=== PATIENT | male | born 1995 | race Caucasian/White ===

== ENCOUNTER 2021-07-08 07:57 | Emergency (ER) | payer OTHER, SELFPAY ==
[2021-07-08] VITALS (10 sets, daily range): BP systolic 135–165; BP diastolic 100–106; PULSE 72–105; RESP 11–22; TEMP 36.8; O2SAT 84–100; BMI 23.6
--- NOTE | 2021-07-08 07:58 | XRR_ITS ---
PROCEDURE INFORMATION: Exam: XR Left Foot Exam date and time: 07/08/2021 7:58 AM Age: 25 years old Clinical indication: Injury or trauma; Fall; Blunt trauma and laceration; Foot; Left; Foreign body involvement not specified TECHNIQUE: Imaging protocol: XR Left foot. Views: 3 or more views. COMPARISON: No relevant prior studies available. FINDINGS: Bones/joints: No bony abnormalities are seen. Soft tissues: There are numerous tiny foci radiopacities projecting in the soft tissues anterior to the ankle, talus and navicular which may represent foreign bodies and laceration. XR/XR foot LT min 3V* [id number] IMPRESSION: There are numerous tiny radiopacities projecting in the soft tissues are there is anterior to the to the ankle, talus and navicular which may represent foreign bodies and a laceration.
--- NOTE | 2021-07-08 07:58 | XRR_ITS ---
PROCEDURE INFORMATION: Exam: XR Left Knee Exam date and time: 07/08/2021 7:58 AM Age: 25 years old Clinical indication: Injury or trauma; Fall; Blunt trauma and laceration; Left; Patella or knee; With foreign body TECHNIQUE: Imaging protocol: XR Left knee. Views: 3 views. COMPARISON: No relevant prior studies available. FINDINGS: Bones/joints: Normal. Soft tissues: There are punctate radiopacities projecting in the soft tissues superior to the patella on the lateral view which may represent tiny foreign bodies in a laceration.. XR/XR knee LT 3V* [id number] IMPRESSION: 1. No acute bony abnormality. 2. Punctate radiopacities projecting on the soft tissues above the patella on the lateral view which may represent tiny foreign bodies in the laceration.
--- NOTE | 2021-07-08 07:58 | XRR_ITS ---
PROCEDURE INFORMATION: Exam: XR Left Ankle Exam date and time: 07/08/2021 7:58 AM Age: 25 years old Clinical indication: Injury or trauma; Fall; Blunt trauma; Ankle; Left TECHNIQUE: Imaging protocol: XR Left ankle. Views: 3 or more views. COMPARISON: No relevant prior studies available. FINDINGS: Bones/joints: No significant bone or joint abnormalities are seen. Soft tissues: There are numerous tiny radiopacities projecting in the soft tissues anterior to the ankle joint talus and navicular bone which may represent foreign bodies in the laceration. XR/XR ankle LT min 3V* [id number] IMPRESSION: 1. There are numerous tiny radiopacities projecting in the soft tissues anteriorly which may represent foreign bodies in the laceration. 2. No bony abnormality.
--- NOTE | 2021-07-08 08:04 | W.ED.LOWEXIN ---
HPI - Extremity Injury (Lower) General: Chief Complaint: Fall Stated Complaint: TRAUMA FALL Time Seen by Provider: 07/08/21 07:58 Source: patient Mode of arrival: ambulatory Limitations: no limitations History of Present Illness: HPI Narrative: 5-year-old male states he had a fall just prior to arrival. He injured his left leg during the fall does have a laceration over the dorsum of his left foot along to his left knee. Laceration over the dorsum of his foot is quite large. He rates his pain an 8 out of 10. Patient is able ambulate has full range of motion of the foot. He states that he hit his head when he fell. Denies any chest or abdominal injuries. Review of Systems Const: Denies: fever(s), chills, body aches or change in appetite Eyes: Denies: blurry vision or eye discomfort ENMT: Denies: throat pain or dental pain Card: Denies: chest pain Resp: Denies: dyspnea GI: Denies: abdominal pain, nausea, vomiting or diarrhea : Denies: dysuria Musc: Denies: neck pain or back pain Skin/Breast: Denies: rash Neuro: Denies: headache(s) Psych: Denies: depression Ever/Lymph: Denies: easy bruising All/Imm: Denies: urticaria Physical Exam Const: COMMON NORMALS: no acute distress, patient oriented x3 and healthy appearing HENMT: COMMON NORMALS: normocephalic and atraumatic HEAD & SCALP: normocephalic and atraumatic Eye: COMMON NORMALS: Equal, round and reactive pupils present and EOMs intact bilaterally PUPIL: Yes Equal, round and reactive pupils present Neck/C-Spine: COMMON NORMALS: full ROM and supple Chest: COMMONS NORMALS: normal inspection of the chest and normal palpation of entire chest wall Resp: COMMON NORMALS: normal respiratory effort, No retractions, No use of accessory muscles and clear to auscultation bilaterally AUSCULTATION: clear to auscultation bilaterally Cardio: COMMON NORMALS: regular rate, regular rhythm and No murmurs present (Cardio) RATE: regular rate RHYTHM: regular rhythm GI: COMMON NORMALS: Normal to inspection, nondistended, normoactive bowel sounds present, Soft to palpation, non-tender and no masses PALPATION: Yes Soft to palpation Extremity: NARRATIVE EXTREMITY EXAM: A laceration over left knee. 6 cm laceration over dorsum of the foot right at the ankle patient has no obvious tendon involvement. He is able to flex and extend his foot. Laceration does go to the muscle layer Neuro: COMMON NORMALS: patient oriented x3, moves all extremities and no focal motor deficits Psych: COMMON NORMALS: mental status grossly normal, Normal thought process present and cooperative THOUGHT PROCESS: Normal thought process present Skin: COMMON NORMALS: no rashes or lesions noted and no wounds GENERAL SKIN EXAM: no rashes or lesions noted Procedures Laceration Laceration 1: Site: lower extremity Side (If applicable): left Size (cm): 1 Description: linear Depth: simple, single layer Local Anesthetic: lidocaine 1% Amount of anesthesia used (mL): 5 Pre-repair: wound explored and irrigated extensively Skin layer closed with: nylon Size (cm): 4-0 Number of sutures: 1 Technique: simple, interrupted Laceration 2: Site: lower extremity Side (If applicable): left Size (cm): 6 Description: linear Depth: simple, single layer Local Anesthetic: lidocaine 1% Amount of anesthesia used (mL): 15 Pre-repair: wound explored, irrigated extensively and deep structures intact Skin layer closed with: nylon Size (cm): 4-0 Number of sutures: 10 Technique: simple, interrupted Course Vital Signs: Vital signs: Vital Signs Temperature 98.3 F 07/08/21 08:00 Pulse Rate 90 07/08/21 08:34 Respiratory Rate 21 H 07/08/21 09:29 Blood Pressure 158/106 07/08/21 08:34 Pulse Oximetry 99 07/08/21 09:29 MDM - Extremity Injury (Lower) MDM Narrative: Medical decision making narrative: Patient presents with laceration over the knee and the left foot. Laceration over the left foot was quite deep with road rash. I irrigated it very extensively with 2 L of sterile saline. Patient given Ancef here will place on pain meds splint placed on crutches and have him follow-up with podiatry outpatient and placed on antibiotics. He is return if he has any signs of infection. He understands agrees to plan. Imaging Data^: xr L knee: Radiologist's impression: [address] [address] XRay Report Signed Patient: Daniel Castano Unit #: [id number] : 1995 Age/Sex: 25 / M ADM Date: 07/08/21 Loc: ER Room/Bed: Attending Dr: Ordering Provider/Ordering MD: Vanita Hyatt MD Date of Service: 07/08/21 Procedure(s): XR knee LT 3V* [id number] Accession Number(s): [id number] Report Number: [id number] PROCEDURE INFORMATION: Exam: XR Left Knee Exam date and time: 07/08/2021 7:58 AM Age: 25 years old Clinical indication: Injury or trauma; Fall; Blunt trauma and laceration; Left; Patella or knee; With foreign body TECHNIQUE: Imaging protocol: XR Left knee. Views: 3 views. COMPARISON: No relevant prior studies available. FINDINGS: Bones/joints: Normal. Soft tissues: There are punctate radiopacities projecting in the soft tissues superior to the patella on the lateral view which may represent tiny foreign bodies in a laceration.. XR/XR knee LT 3V* [id number] IMPRESSION: 1. No acute bony abnormality. 2. Punctate radiopacities projecting on the soft tissues above the patella on the lateral view which may represent tiny foreign bodies in the laceration. Dictated By: Toi Guerrero Signed By: Toi Guerrero Signed Date/Time: 07/08/21 0900 DD/ 0859 xr L foot: Radiologist's impression: [address] [address] XRay Report Signed Patient: Daniel Castano Unit #: [id number] : 1995 Age/Sex: 25 / M ADM Date: 07/08/21 Loc: ER Room/Bed: Attending Dr: Ordering Provider/Ordering : Maureen Gonzalez Date of Service: 07/08/21 Procedure(s): XR foot LT min 3V* [id number] Accession Number(s): [id number] Report Number: [id number] PROCEDURE INFORMATION: Exam: XR Left Foot Exam date and time: 07/08/2021 7:58 AM Age: 25 years old Clinical indication: Injury or trauma; Fall; Blunt trauma and laceration; Foot; Left; Foreign body involvement not specified TECHNIQUE: Imaging protocol: XR Left foot. Views: 3 or more views. COMPARISON: No relevant prior studies available. FINDINGS: Bones/joints: No bony abnormalities are seen. Soft tissues: There are numerous tiny foci radiopacities projecting in the soft tissues anterior to the ankle, talus and navicular which may represent foreign bodies and laceration. XR/XR foot LT min 3V* [id number] IMPRESSION: There are numerous tiny radiopacities projecting in the soft tissues are there is anterior to the to the ankle, talus and navicular which may represent foreign bodies and a laceration. Dictated By: Toi Guerrero Signed By: Toi Guerrero Signed Date/Time: 07/08/21901 DD/ 0 xr L ankle: Radiologist's impression: [address] [address] XRay Report Signed Patient: Daniel Castano Unit #: [id number] : 1995 Age/Sex: 25 / M ADM Date: 07/08/21 Loc: ER Room/Bed: Attending Dr: Ordering Provider/Ordering MD: Maureen Gonzalez Date of Service: 07/08/21 Procedure(s): XR ankle LT min 3V* [id number] Accession Number(s): [id number] Report Number: [id number] PROCEDURE INFORMATION: Exam: XR Left Ankle Exam date and time: 07/08/2021 7:58 AM Age: 25 years old Clinical indication: Injury or trauma; Fall; Blunt trauma; Ankle; Left TECHNIQUE: Imaging protocol: XR Left ankle. Views: 3 or more views. COMPARISON: No relevant prior studies available. FINDINGS: Bones/joints: No significant bone or joint abnormalities are seen. Soft tissues: There are numerous tiny radiopacities projecting in the soft tissues anterior to the ankle joint talus and navicular bone which may represent foreign bodies in the laceration. XR/XR ankle LT min 3V* [id number] IMPRESSION: 1. There are numerous tiny radiopacities projecting in the soft tissues anteriorly which may represent foreign bodies in the laceration. 2. No bony abnormality. Dictated By: Toi Guerrero Signed By: Toi Guerrero Signed Date/Time: 07/08/21900 DD/ 9 CT Head: Attestation: I personally reviewed and interpreted this imaging study as follows: Radiologist's impression: [facility] [place] [address] [facility] [place] [address] CT Scan Report Signed Patient: Daniel Castano Unit #: [id number] : 1995 Age/Sex: 25 / M ADM Date: 07/08/21 Loc: ER Room/Bed: Attending Dr: Ordering Provider/Ordering MD: Vanita Hyatt MD Date of Service: 07/08/21 Procedure(s): CT head wo con* [id number] Accession Number(s): [id number] Report Number: [id number] PROCEDURE INFORMATION: Exam: CT Head Without Contrast Exam date and time: 07/08/2021 8:11 AM Age: 25 years old Clinical indication: Injury or trauma; Fall; Blunt trauma (contusions or hematomas); Without loss of consciousness; Additional info: Head injury TECHNIQUE: Imaging protocol: Computed tomography of the head without contrast. Radiation optimization: All CT scans at this facility use at least one of these dose optimization techniques: automated exposure control; mA and/or kV adjustment per patient size (includes targeted exams where dose is matched to clinical indication); or iterative reconstruction. COMPARISON: CT Cervical Spine wo* [id number] 02/27/2017 1:56 AM RADIATION DOSE METRICS: Total DLP (mGy-cm): 776.35 FINDINGS: Brain: Normal. No hemorrhage. Unremarkable white matter. No mass effect. Cerebral ventricles: No ventriculomegaly. Paranasal sinuses: There is scattered mucosal thickening in the paranasal sinuses with fluid in the frontal sinus. Mastoid air cells: Visualized mastoid air cells are well aerated. Bones/joints: Unremarkable. No acute fracture. Soft tissues: Unremarkable. CT/CT head wo con* [id number] IMPRESSION: 1. No acute abnormality is seen in the brain. 2. Paranasal sinusitis. Radiation Dose CTDIVOL = (mGy): DLP = 776.35 (mGy-cm) Dictated By: Toi Guerrero Signed By: Toi Guerrero Signed Date/Time: 07/08/21929 DD/ 8 Discharge Plan Discharge Patient Disposition: Home Clinical Impression: Closed head injury Foot laceration Qualifiers: Encounter type: initial encounter Laterality: left Qualified Code(s): S91.312A - Laceration without foreign body, left foot, initial encounter Condition: Stable Prescriptions: New hydrocodone-acetaminophen 5-325 mg tablet 1 tab PO Q6H PRN (Reason: pain) Qty: 14 RF: 0 cephalexin 500 mg capsule 500 mg PO QID 7 Days Qty: 28 RF: 0 Discharge Orders: Discharge ED (Routine); Ordered 07/08/21 Ordered By: Vanita Hyatt Referrals: [facility] [Other] Nahid Morel DPM [Physician] - 1-3 days Discharge Diet: Advance as tolerated Discharge Activity: Resume usual activity Patient Instructions: Laceration (ED), Opioid Safety Coding Level of Care Code 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
[2021-07-08] MEDS: ondansetron 2 mg/ML SDV 2 mL 4 MG IVP (08:09)
[2021-07-08] MEDS: HYDROmorphone 1 mg/mL INJ 1 mL IVP ×2 (08:09→09:29)
[2021-07-08] MEDS: tetanus-dipt-pertussis 0.5 mL SDV IM (08:10)
--- NOTE | 2021-07-08 08:11 | CTR_ITS ---
PROCEDURE INFORMATION: Exam: CT Head Without Contrast Exam date and time: 07/08/2021 8:11 AM Age: 25 years old Clinical indication: Injury or trauma; Fall; Blunt trauma (contusions or hematomas); Without loss of consciousness; Additional info: Head injury TECHNIQUE: Imaging protocol: Computed tomography of the head without contrast. Radiation optimization: All CT scans at this facility use at least one of these dose optimization techniques: automated exposure control; mA and/or kV adjustment per patient size (includes targeted exams where dose is matched to clinical indication); or iterative reconstruction. COMPARISON: CT Cervical Spine wo* [id number] 02/27/2017 1:56 AM RADIATION DOSE METRICS: Total DLP (mGy-cm): 776.35 FINDINGS: Brain: Normal. No hemorrhage. Unremarkable white matter. No mass effect. Cerebral ventricles: No ventriculomegaly. Paranasal sinuses: There is scattered mucosal thickening in the paranasal sinuses with fluid in the frontal sinus. Mastoid air cells: Visualized mastoid air cells are well aerated. Bones/joints: Unremarkable. No acute fracture. Soft tissues: Unremarkable. CT/CT head wo con* [id number] IMPRESSION: 1. No acute abnormality is seen in the brain. 2. Paranasal sinusitis. Radiation Dose CTDIVOL = (mGy): DLP = 776.35 (mGy-cm)
[2021-07-08] MEDS: lidocaine 1% INJ 20 mL INJECTION (08:47)
--- NOTE | 2021-07-09 09:45 | DCPLANNER ---
Addendum entered by Reshma Alvarez 07/09/21 09:50: Patient has [employer] insurance, cyanide case hardener will mail patients information to [employer] with [employer] in [facility], so that the authorization process could be started. Original Note: manager process excellence had message to schedule a follow up appointment for patient with ortho. manager process excellence called the ortho clinic, spoke with Natalie, gave clinic patients information. manager process excellence was told that patients information would be printed and reviewed. Clinic will call patient with appointment information.
--- NOTE | 2021-07-13 08:12 | DCPLANNER ---
Patient had a follow up appointment scheduled for 07.10.[address] Singh at [facility] - patient did attend appointment.
== END 2021-07-08 10:06 | disposition home or self-care (01) ==
PROVIDERS: Emergency Provider Emergency Medicine; PCP Family Medicine
DX: S91.312A Laceration without foreign body, left foot, initial encounter (principal); S09.8XXA Other specified injuries of head, initial encounter; S81.012A Laceration without foreign body, left knee, initial encounter; W19.XXXA Unspecified fall, initial encounter; Z23 Encounter for immunization
CPT/HCPCS: 12002; 70450; 73562; 73610; 73630; 90471; 90715; 96365; 96375; 96376; 99284; A6446; J0690; J1170; J2405

== ENCOUNTER 2021-07-15 10:40 | Emergency (ER) | payer OTHER, SELFPAY ==
[2021-07-15 11:01] VITALS: PULSE 92; RESP 18; TEMP 37.1; O2SAT 97; BMI 23.6
--- NOTE | 2021-07-15 11:51 | W.ED.EXTPRO ---
HPI - Extremity Problem General: Chief complaint: Extremity Injury, Lower Stated complaint: POSS LEFT INFECTION Time Seen by Provider: 07/15/21 11:09 [facility] ED PFSH: Social History Smoking and tobacco status: never smoked Course Vital Signs: Vital signs: Vital Signs Temperature 98.8 F 07/15/21 11:01 Pulse Rate 92 07/15/21 11:01 Respiratory Rate 18 07/15/21 11:01 Pulse Oximetry 97 07/15/21 11:01 Discharge Plan Discharge Patient Disposition: Home Clinical Impression: Cellulitis Condition: Stable Prescriptions: New hydrocodone-acetaminophen 5-325 mg tablet 1 tab PO DAILY PRN (Reason: pain) 3 Days Qty: 3 RF: 0 Bactrim DS 800-160 mg tablet 1 tab PO BID 7 Days Qty: 14 RF: 0 No Action hydrocodone-acetaminophen 5-325 mg tablet 1 tab PO Q6H PRN (Reason: pain) 7 Days Qty: 30 RF: 0 Discharge Orders: Discharge ED (Routine); Ordered 07/15/21 Ordered By: Maicol Slater Referrals: Rosita Thmoas MD [Primary Care Provider] - Discharge Diet: Advance as tolerated Discharge Activity: Resume usual activity Patient Instructions: Cellulitis (ED), Opioid Safety Activity Restrictions/Additional Instructions: Follow-up with your doctor in 2 days for further evaluation of your symptoms. Please take the new antibiotics as instructed. Come back to the emergency room if you notice any worsening drainage, fever/chills, redness swelling worsening, or any new concerning complaints Coding Level of Care Code ED Sweeper Brush Maker Machine for Ivonne Earl
--- NOTE | 2021-07-15 12:11 | W.ED.GENADLT ---
HPI - General Adult General: Chief complaint: Extremity Injury, Lower Stated complaint: POSS LEFT INFECTION Time Seen by Provider: 07/15/21 11:09 History of Present Illness: HPI narrative: Patient is a 25-year-old male presents emergency room after sustaining a fall on 07/08/2021 with surgery for redness and swelling in the left foot at the site of previous suture placement. Patient was discharged home on 07/08 2021 with Keflex. Since then, patient has noticed swelling and drainage in the left foot. Patient denies any fever or chills. Patient reports washing affected injury sites and taking his antibiotics as instructed. Onset: 07/08 Duration:ongoing Location: home Severity: mild Review of Systems Narrative: Constitutional: No fever, no chills. HEENT: No vision changes CV: No chest pain, no palpitations PULM: no cough, no dyspnea. GI: No abdominal pain, no N/V/D. : No dysuria MSKEL: No muscle pain SKIN: +abrasion, drainage and erytheam over the L foot NEURO: No headache, no focal weakness. HEME: No visible bruises PSYCH: Normal mood PFSH ED PFSH: Social History Smoking and tobacco status: never smoked Physical Exam Narrative: EXAM NARRATIVE: Head: Atraumatic Eyes: PERRL, conjunctiva without injection ENT: Mucous membrane moist NECK: Supple, ROM intact LUNGS: LCTAB, no crackles/rhonchi CV: RRR ABDOMEN: Soft, nontender in all quadrants EXTREMITY: Normal ROM SKIN: +No vsible drainage, +L suture sites nonindurated in place, +mild warmth of the L foot and edema, +neurovascular exam of the L foot intact NEURO: Awake and alert, no focal motor deficits PSYCH: Normal mood and affect Course Vital Signs: Vital signs: Vital Signs Temperature 98.8 F 07/15/21 11:01 Pulse Rate 92 07/15/21 11:01 Respiratory Rate 18 07/15/21 11:01 Pulse Oximetry 97 07/15/21 11:01 MDM - General Adult MDM Narrative: Medical decision making narrative: 25-year-old male presenting to the emergency room for concerns of possible infection over the abrasion and injury sites near his L foot suture site. On exam, patient has mild edema warmth at the site. There is no signs of suture dehiscence. I do not suspect there is underlying abscess at the site of the suture. Patient may have ongoing cellulitis. Given the fact that patient was previously on Keflex, decision was made to switch patient to Bactrim. Patient given bacitracin ointment for topical use Patient is given follow-up on Friday. At the present time, no suspicion for necrotizing soft tissue infections. Rx bactrim DS x 7 days, mupiricin ointmnet Disposition: Discharge. Patient is given strict return precaution for any signs of fever/chills, crepitus, wound dehiscence, drainage, systemic symptoms or any new or concerning complaints Discharge Plan Discharge Patient Disposition: Home Clinical Impression: Cellulitis Condition: Stable Prescriptions: New hydrocodone-acetaminophen 5-325 mg tablet 1 tab PO DAILY PRN (Reason: pain) 3 Days Qty: 3 RF: 0 Bactrim DS 800-160 mg tablet 1 tab PO BID 7 Days Qty: 14 RF: 0 No Action hydrocodone-acetaminophen 5-325 mg tablet 1 tab PO Q6H PRN (Reason: pain) 7 Days Qty: 30 RF: 0 Discharge Orders: Discharge ED (Routine); Ordered 07/15/21 Ordered By: Maicol Slater Referrals: Rosita Thomas MD [Primary Care Provider] - Discharge Diet: Advance as tolerated Discharge Activity: Resume usual activity Patient Instructions: Cellulitis (ED), Opioid Safety Activity Restrictions/Additional Instructions: Follow-up with your doctor in 2 days for further evaluation of your symptoms. Please take the new antibiotics as instructed. Come back to the emergency room if you notice any worsening drainage, fever/chills, redness swelling worsening, or any new concerning complaints Coding Level of Care Code ED Solar Fabrication Technician for Ivonne Earl
== END 2021-07-15 12:11 | disposition home or self-care (01) ==
PROVIDERS: Emergency Provider Emergency Medicine; PCP Family Medicine
DX: L03.116 Cellulitis of left lower limb (principal)
CPT/HCPCS: 99281

== ENCOUNTER 2023-09-03 12:54 | Emergency (ER) | payer OTHER, SELFPAY ==
[2023-09-03 13:07] VITALS: BP 134/86; PULSE 82; RESP 16; TEMP 36.7; O2SAT 98; BMI 24.3
--- NOTE | 2023-09-03 13:13 | W.ED.NECK ---
HPI - Neck Pain/Injury General: Chief Complaint: Neck Pain/Injury Stated Complaint: Neck pain Time Seen by Provider: 09/03/23 13:13 History of Present Illness: 27-year-old male patient comes in today with complaints of neck discomfort for the last 3 months. 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 Patient does not have a specific date where he was injured. However, patient for the last 3 months has had neck pain increasing on and off. Patient was seen at the [facility] department today had x-rays done and was told to come to the ER if he needed something for pain. Patient was prescribed ibuprofen at [facility]. Patient appears nontoxic. Patient reports no fever. Patient reports no nausea or vomiting. Associated symptoms: Denies headache(s) or nausea Review of Systems General: Reports: 10 or more systems reviewed and unremarkable except in HPI and below Const: Denies: fever(s) Card: Denies: chest pain Resp: Denies: dyspnea GI: Denies: nausea, vomiting, diarrhea or constipation : Denies: difficulty urinating Musc: Reports: neck pain Skin/Breast: Denies: rash Neuro: Denies: headache(s) PFS ED PFSH: Social History Smoking and tobacco/nicotine status: never used tobacco/nicotine Physical Exam Const: COMMON NORMALS: alert HENMT: COMMON NORMALS: normocephalic HEAD & SCALP: normocephalic MOUTH: Normal oral and palatal mucosa present Neck/C-Spine: COMMON NORMALS: full ROM CERVICAL SPINE: No Cervical spine tenderness and Yes Paracervical muscle tenderness Resp: COMMON NORMALS: normal respiratory effort and clear to auscultation bilaterally AUSCULTATION: clear to auscultation bilaterally Cardio: COMMON NORMALS: regular rate and regular rhythm RATE: regular rate RHYTHM: regular rhythm GI: COMMON NORMALS: non-tender Back/Pelvis: COMMON NORMALS: thoracic and lumbar spine normal to inspection Extremity: COMMON NORMALS: normal to inspection and full ROM Neuro: SENSORIUM/ORIENTATION: Yes alert Skin: COMMON NORMALS: turgor normal GENERAL SKIN EXAM: turgor normal Course Vital Signs: Vital signs: Vital Signs Temperature 98.1 F 09/03/23 13:07 Pulse Rate 82 09/03/23 13:07 Respiratory Rate 16 09/03/23 13:07 Blood Pressure 134/86 09/03/23 13:07 Pulse Oximetry 98 09/03/23 13:07 Oxygen Delivery Me thod Room Air 09/03/23 13:07 [facility] - Neck Pain/Injury Medical Decision Making 27-year-old male patient comes in today with complaints of neck discomfort. Patient was referred to the ER for his neck pain from the [place]. Patient had x-rays done at the [place] today. On exam patient moves neck without difficulty. Patient reports some midline neck discomfort at the C7 tobin. Patient has paraspinous muscle tenderness no pinpoint cervical spine tenderness. Patient has equal strength in bilateral hands. Patient moves all extremities well. Vital signs are normal. Differential diagnosis includes but not limited to intervertebral disc disease, facet arthropathy, muscle strain, malingering. No signs of serious injury or illnesses noted at this time. Patient was given a dose of dexamethasone for concerns of inflammation. Recommend methocarbamol 750 mg 1 tablet 3 times a day as needed for muscle spasms or muscle pain. Recommend to continue with acetaminophen ibuprofen to help with control of pain. Patient reported understanding of recommendations and treatment plan. Patient should follow-up with primary care for further evaluation and consideration of MRI imaging or other therapies. No radiology studies performed this visit Discharge Plan Discharge Patient Disposition: Home Clinical Impression: Neck pain, musculoskeletal Condition: Stable Prescriptions: New methocarbamol 750 mg tablet 750 mg PO Q8H PRN (Reason: muscle spasm) Qty: 30 0RF No Action hydrocodone-acetaminophen 5-325 mg tablet 1 tab PO Q6H PRN (Reason: pain) 7 Days Qty: 30 0RF Discharge Orders: Discharge ED (Routine); Ordered 09/03/23 Ordered By: Luis Rubio Referrals: Rosita Thomas MD [Primary Care Provider] - Discharge Diet: Usual diet Discharge Activity: Increase activity as tolerated Patient Instructions: Neck Pain (ED) Activity Restrictions/Additional Instructions: Activity as tolerated. Gentle stretching and range of motion exercises of the neck. Ice or heat to help with pain control. Use acetaminophen and ibuprofen for further pain control. Use methocarbamol 750 mg 1 tablet 3 times a day as needed for muscle tightness and spasms. Follow-up with primary care for further evaluation and treatment. Return to ED for new concerns. Coding Level of Care Code ED Manager Proposal for Ivonne Earl
[2023-09-03] MEDS: dexamethasone 10 mg/mL INJ IM (13:32)
== END 2023-09-03 13:33 | disposition home or self-care (01) ==
PROVIDERS: Emergency Provider Nurse Practitioner Family; PCP Family Medicine
DX: M54.2 Cervicalgia (principal)
CPT/HCPCS: 96372; 99284; J1100